=== PATIENT | female | born 1970 | race Two or more races ===

== ENCOUNTER 2025-09-15 11:55 | Emergency (ER) | payer OTHER ==
[~2025-09-15] VITALS: Ht 157.5 cm; Wt 56.7 kg
[2025-09-15] MEDS ORDERED: ZOLOFT25 MG (13:28)
[2025-09-15] MEDS ORDERED: ENDOMETRIN100 MG (13:29)
[2025-09-15] MEDS ORDERED: ARMOUR THYROID60 M1 (13:29)
[2025-09-15] MEDS ORDERED: DHEA25 MG (13:29)
[2025-09-15] MEDS ORDERED: TESTIM5 GM (13:29)
[2025-09-15] MEDS ORDERED: CLIMARA1 EAC2 (13:29)
[2025-09-15 16:12] LABS: BASO % 0.5 % (0.1-1.2); EOS # 0.16 (0.04-0.54); EOS % 2.5 % (0.7-7.0); LYMPH # 1.65 (1.18-3.74); LYMPH % 25.5 % (19.3-53.1); MEAN PLATELET VOLUME 8.90 fl (9.4-12.4); MONO # 0.47 (0.24-0.82); MONO % 7.3 % (4.7-12.5); NEUT # 4.15 (1.56-6.13); NEUT % 64.0 % (34.0-71.1); RED CELL DISTRIBUTION WIDTH 12.3 % (11.6-14.4)
[2025-09-15 16:40] LABS: ALT/SGPT 18 U/L (12-78); AST/SGOT 17 U/L (15-37); BILIRUBIN TOTAL 0.33 mg/dL (0.3-1.2); BUN CREA RATIO 16 (7.0-25.0); CREATININE SERUM 0.67 mg/dL (0.55-1.02); GFR 91.72; GLOBULINA 4.1 G/DL (2.4-3.5); GLUCOSE FASTING 89 mg/dL (65-100); OSMOLALITY SERUM 275 MOSM/KG (275-295)
[2025-09-15 17:56] LABS: URINE APPEARANCE Clear; URINE BILIRRUBIN Negative (NEGATIVE); URINE BLOOD Moderate; URINE COLOR Yellow; URINE GLUCOSE Negative (NEGATIVE); URINE KETONE 15 (NEGATIVE); URINE LEUKOCYTE Negative; URINE NITRATE Negative; URINE PROTEIN Negative (NEGATIVE); URINE UROBILINOGEN 0.2 E.U./dl
[2025-09-15 18:01] LABS: URINE EPITHELIAL CELLS 2.9 uL (0.0-38.8); URINE RBC 36.0 uL (0.0-20.8)
[2025-09-15 18:03] LABS: URINE BACTERIA 1.1 uL (0.0-1933); URINE CAST 0.14 uL (0.0-1.40); URINE WBC 0.9 uL (0.0-23.2)
[2025-09-15] MEDS ORDERED: INTESTINEX680 M2 PO (18:49)
[2025-09-15] MEDS ORDERED: PEPCID AC20 MG PO (18:49)
== END 2025-09-15 20:08 | disposition home or self-care (01) ==
LOC: ER 11:56
PROVIDERS: Physician Assistant Medical
DX: K52.89 Other specified noninfective gastroenteritis and colitis (principal)